=== PATIENT | female | born 1960 | race Two or more races ===

== ENCOUNTER 2022-12-31 09:48 | Outpatient (CLI) | payer OTHER | END 2022-12-31 10:10 | disposition home or self-care (01) | LOC: TOM 09:48 | PROVIDERS: ATTEND Internal Medicine | DX: Z12.11 Encounter for screening for malignant neoplasm of colon (principal); K56.50 Intestinal adhesions [bands], unspecified as to partial versus complete obstruction; Z80.0 Family history of malignant neoplasm of digestive organs ==

== ENCOUNTER 2023-02-28 07:30 | Day surgery (SDC) | payer OTHER | END 2023-02-28 12:20 | disposition home or self-care (01) | LOC: AMB-ENDOS 07:30 | PROVIDERS: ATTEND Surgery | DX: D12.3 Benign neoplasm of transverse colon (principal); K57.30 Diverticulosis of large intestine without perforation or abscess without bleeding; K64.8 Other hemorrhoids; Z20.822 Contact with and (suspected) exposure to COVID-19 ==

== ENCOUNTER → 2024-05-21 | Day surgery (SDC) | payer OTHER ==
[~2024-05-21] MED LIST: DIPHENHYDRAMINE HCL 50 MG/ML VIAL 1ML IV ONE; MIDAZOLAM HCL 2 MG/2 ML VIAL IV ONE; fentaNYL CITRATE 50 MCG/ML AMPUL IV ONE
== END | disposition home or self-care (01) ==
LOC: ADM 05-12 13:00 → CIR.AMB 07:00
PROVIDERS: ATTEND Surgery
DX: K57.30 Diverticulosis of large intestine without perforation or abscess without bleeding (principal); K63.5 Polyp of colon; K64.8 Other hemorrhoids